=== PATIENT | female | born 1945 | race Hispanic/Latino ===

== ENCOUNTER → 2019-01-31 | Day surgery (SDC) | payer MEDICARE ==
[~2019-01-31] MED LIST: ASPIR 8181 MG PO; BACLOFEN10 MG PO; CARVEDILOL12.5 MG PO; GABAPENTIN300 MG PO; KEFLEX500 MG PO; KETAMINE HCL INJ 50 MG/ML 10 ML VIAL ONE; LASIX20 MG PO; LEVOTHYROXINE75 MCG PO; LIDOCAINE HCL 2% LOCAL INJ 5 ML SDV VIAL INJ ONE; LISINOPRIL-HCT1 EAC3 PO; LISINOPRIL10 MG PO; LOVASTATIN40 MG PO; MELOXICAM7.5 MG PO; METFORMIN HCL500 MG PO; MIDAZOLAM HCL 2 MG/2 ML VIAL ONE; PANTOPRAZOLE SO40 MG PO; PROPOFOL IV EMULSION 10 MG/ML 50 ML VIAL ONE; TYLENOL # 31 EA PO; ULTRAM50 MG PO; Z.0.CLONIDINE HCL0.1 PO; Z.0.LEVOTHYROXINE75 PO; Z.0.MELOXICAM15 MG PO; Z.0.PROTONIX40 MG PO; Z.0.VYTORIN 10-401 E PO; Z.2.METFORMIN HCL500 PO; ZETIA10 MG PO
--- OUTSIDE RECORDS SUMMARY | 2019-01-31 08:50 | XMS REPORT ---
[facility] Author [facility] Address Unknown Phone Unavailable Care Team Providers Care Electrical Assembly Supervisor Name Role Phone Amari LAMBERT Unavailable Unavailable Payers Payer Name Policy Type Policy Number Effective Date Expiration Date Problems This patient has no known problems. Allergies, Adverse Reactions, Alerts Allergy Name Allergy Type Status Severity Reaction(s) Onset Date Inactive Date Treating Clinician Comments propoxyphene napsylate DA Active [place] 2016-03-18 00:00:00 Medications This patient has no known medications. Results Test Description Test Time Test Comments Text Results Atomic Results Result Comments - MRI LW JNT W/O CONT LT 2018-11-12 18:07:00 FAX: Grady Murcia [phone] [place]: B St: REG Name: YESSENIA TERRY [employer] : 1945 Age/S: 73/F [address] Unit #: [id number] Loc: [place] [address] Phys: Grady Del Toro MD Acct: [id number] Dis Date: Status: REG CLI PHONE #: [phone] Exam Date: 11/12/2018 1634 FAX #: [phone] Reason: M54.41,M54.42 EXAMS: CPT CODE: [id number] MRI LW JNT W/[place] [address] EXAMINATION: MRI HIP WITHOUT CONTRAST - LEFT SIDE INDICATION: Hip pain. COMPARISON: None. TECHNIQUE: 1.5 T MRI. Routine noncontrast MRI of the pelvis and left hip FINDINGS: Acetabular Labrum: No labral tear or detachment. Hip Morphology: No cam deformity, femoral head over coverage or acetabular retroversion. Hip Joint/Articular Cartilage: Joint space is maintained. No hip joint effusion. No intraarticular loose body. Tonnis grade=0 Bone/Marrow: Normal signal intensity. No focal bone lesion, femoral neck stress fracture or avascular necrosis of femoral head. Muscles and Tendons: No muscle edema, fatty infiltration or atrophy. Iliopsoas, rectus femoris, gluteus, adductor and hamstrings tendons are intact. Sacroiliac joints: Normal. Symphysis pubis: Normal. Intr apelvic structures: No free fluid or lymphadenopathy. Other: No trochanteric bursal fluid collection. No periarticular soft tissue mass. Visualized pelvic organs are within normal limits. IMPRESSION: Normal MR of the pelvis and left hip. at 1807 Reported and signed by: Kade Wilcox MD PAGE 1 Signed Report (CONTINUED) FAX: Grady Murcia [phone] [place]: St: REG Name: YESSENIA TERRY [facility] [employer] : 1945 Age/S: 73/F [address] Unit #: [id number] Loc: [place] [address] Phys: Grady Del Toro MD Acct: [id number] Dis Date: Status: REG CLI PHONE #: [phone] Exam Date: 11/12/2018 1634 FAX #: [phone] Reason: M54.41,M54.42 EXAMS: CPT CODE: [id number] MRI LW JNT W/[place] [address] <Continued> CC: Grady Del Toro MD Technologist: Tameka Espinoza)(MR) Trnscrd Date/Time/By: 11/12/2018 (1805) : By: [email or web address] PAGE 2 Signed Report - MRI L-SPINE W/O CONT 2018-11-12 17:13:00 FAX: Grady Murcia [phone] [place]: St: REG Name: YESSENIA TERRY [employer] : 1945 Age/S: 73/F [address] [facility] Unit #: [id number] Loc: [place] [address] Phys: Grady Del Toro MD Acct: [id number] Dis Date: Status: REG CLI PHONE #: [phone] Exam Date: 11/12/2018 1634 FAX #: [phone] Reason: M54.41,M54.42 EXAMS: CPT CODE: [id number] MRI L-SPINE W/O CONT 95413 HISTORY: M54.41,M54.42 TECHNIQUE: Sagittal T2, sagittal T1, sagittal STIR, axial T1, and axial T2 sequences of the lumbar spine acquired without contrast. COMPARISON: CT scan of the lumbar spine March 20, 2016 FINDINGS: Postsurgical changes of posterior fusion of L3-L5 and posterior laminectomy at L4-L5 are redemonstrated. T12-L1: No disc bulge or protrusion. No central canal or foraminal stenosis. L1-L2: There is anterior disc bulging but no appreciable posterior disc bu lging. No central canal or foraminal stenosis. L2-L3: No central canal stenosis. Suboptimal evaluation of the foramina secondary to spinal hardware. L3-L4: Suboptimal evaluation of the foramina due to artifact from hardware. No central canal stenosis L4-L5: Mild central canal stenosis, similar to previous exam. Suboptimal evaluation of the foramina secondary to spinal hardware. L5-S1: No central canal stenosis. Suboptimal evaluation of the foramina secondary to spinal hardware. IMPRESSION: Postsurgical changes of L3-L5 posterior fusion and L4-L5 laminectomy appear grossly unchanged from the prior exam. No mild central canal narrowing at L4-L5 but otherwise the central canal is patent. Suboptimal evaluation for the presence of foraminal narrowing in the mid to lower lumbar spine secondary to artifact from spinal hardware. at 4103 Reported and signed by: Kade Wilcox MD PAGE 1 Signed Report (CONTINUED) FAX: Grady Murcia [phone] [place]: St: REG Name: YESSENIA TERRY [employer] : 1945 Age/S: 73/F [address] [facility] Unit #: [id number] Loc: [place] [address] Phys: Grady Del Toro MD Acct: [id number] Dis Date: Status: REG CLI PHONE #: [phone] Exam Date: 11/12/2018 1634 FAX #: [phone] Reason: M54.41,M54.42 EXAMS: CPT CODE: [id number] MRI L-SPINE W/O CONT 30842 <Continued> CC: Grady Del Toro MD Technologist: Tameka Espinoza)() [facility] Date/Time/By: 11/12/2018 (1713) : By: [email or web address] Orig Print D/T: S: 11/12/2018 (8433) PAGE 2 Signed Report - XR CHEST 2 V 2018-08-06 13:00:00 Name: YESSENIA TERRY [facility] : 1945 Age/S:73 /F [address] [facility] Unit#:[id number] Loc: [place] [address] Phys: Fermin Kwon MD Dis Date: PHONE #: [phone] Status: DEP ER FAX #: [phone] Exam Date: 08/06/2018 Reason: cough+wheezing EXAMS: CPT CODE: [id number] XR CHEST 2 V 07257 HISTORY: Cough and wheezing. COMPARISON: October 07, 2016. AP and lateral view of the chest: No acute infiltrates, effusion or congestion. Dependent changes. Cardiac silhouette is mildly enlarged. DJD of the dorsal spine. IMPRESSION: No acute infiltrates, effusion or congestion. Dependent changes. at 1300 Reported and signed by: Moshe Loja M.D. CC: Fermin Kwon MD Technologist: ESTEFANÍA BAUTISTA, RT(R),CT Trnscrpt Data: 08/06/2018 (1300) [email or web address] Orig Print D/T: S: 08/06/2018 (1313) PAGE 1 Signed Report - XR CHEST 1 V 2016-10-07 09:41:00 FAX: Mac Duncan MD [phone] [place]: B St: [facility] FAX: Lissa Spencer [phone] Name: YESSENIA TERRY [employer] : 1945 Age/S: 71/F [address] Unit #: [id number] Loc: [facility] [place] [address] Phys: Mac Duncan MD Acct: [id number] Dis Date: Status: UNK PHONE #: [phone] Exam Date: 10/07/2016 0905 FAX #: [phone] Reason: CHEST PAIN EXAMS: CPT CODE: [id number] XR CHEST 1 V 78797 HISTORY: Chest pain. COMPARISON: Previous day. No acute infiltrates, effusion or congestion is noted. Dependent changes. Cardiomegaly. IMPRESSION: No acute infiltrates, effusion or congestion. at 0941 Reported and signed by: Moshe Loja M.D. CC: Mac Duncan MD; Lissa Lawton MD Technologist: RT CADE(Daniel) Trnscrd Date/Time/By: 10/07/2016 (940) : By: [email or web address] Orig Print D/T: S: 10/07/2016 (0913) PAGE 1 Signed Report - CT C-SPINE W/O CONTRAST 2016-10-06 12:52:00 Name: YESSENIA TERRY [employer] : 1945 Age/S: 71 / F [address] Unit #: [id number] Loc: [place] [address] Phys: Mac Duncan MD Acct: [id number] Dis Date: Status: UNK PHONE #: [phone] Exam Date: 10/06/2016 1230 FAX #: [phone] Reason: Pain s/p fall EXAMS: CPT CODE: [id number] CT C-SPINE W/O CONTRAST 95836 HISTORY: Pain after fall. COMPARISON: None available. CT cervical spine without contrast: Automated exposure control. No acute fracture of the cervical spine. No prevertebral soft tissue swelling. No canal or foraminal stenosis. Scattered marginal osteophytes. Thyroid glands are normal. Superior mediastinum is unremarkable. Lung apices are clear. Vertebral body heights are maintained. Anatomic alignment. Uncovertebral joints are preserved. IMPRESSION: No acute fracture. Anatomic alignment. DJD. at 1252 Reported and signed by: Moshe Loja M.D. CC: Mac Duncan MD Technologist:Vinita Porter RT(R),CT CTDI: DLP: Trnscb Date/Time: 10/06/2016 (0327) [email or web address] Orig Print D/T: S: 10/06/2016 (2232) CTDI: DLP: PAGE 1 Signed Report - CT HEAD/BRAIN W/O CONT 2016-10-06 12:49:00 Name: YESSENIA TERRY [employer] : 1945 Age/S: 71 / F [address] [facility] Unit #: [id number] Loc: [place] [address] Phys: Mac Duncan MD Acct: [id number] Dis Date: Status: UNK PHONE #: [phone] Exam Date: 10/06/2016 1230 FAX #: [phone] Reason: Pain s/p fall EXAMS: CPT CODE: [id number] CT HEAD/BRAIN W/O CONT 05910 HISTORY: Pain after fall. COMPARISON: None available. CT brain without contrast: Automated exposure control. No acute intracranial bleeds or extra-axial collections are noted. No acute territorial vascular infarction is noted. The sulci, gyri, ventricles and subarachnoid spaces and the basilar cisterns are normal for patient's age. No herniation or hydrocephalus or midline shift is noted. Mild periventricular ischemic gliosis is noted. Age-appropriate atrophy is noted as well. Portions of the visualized paranasal sinuses demonstrated air-fluid levels within the floors of both maxillary sinus. Bilateral ethmoid sinusitis as well. No obvious bony calvarial defect is noted. IMPRESSION: No acute intracranial bleeds or extra-axial collections. No acute territorial vascular infarction. No herniation or hydrocephalus or midline shift. Chronic white matter ischemic disease and atrophy . at 1249 Reported and signed by: Moshe Loja M.D. CC: Mac Duncan MD Technologist:Vinita Porter RT(R),CT CTDI: DLP: Trnscb Date/Time: 10/06/2016 (7939) [email or web address] Orig Print D/T: S: 10/06/2016 (1772) CTDI: DLP: PAGE 1 Signed Report - XR CHEST 1 V 2016-10-06 12:22:00 FAX: Mac Duncan MD [phone] [place]: St: [facility] Name: YESSENIA TERRY [facility] [employer] : 1945 Age/S: 71/F [address] [facility] Unit #: [id number] Loc: [place] [address] Phys: Mac Duncan MD Acct: [id number] Dis Date: Status: UNK PHONE #: [phone] Exam Date: 10/06/2016 1220 FAX #: [phone] Reason: Syncope EXAMS: CPT CODE: [id number] XR CHEST 1 V 15950 HISTORY: Syncope. COMPARISON: None available. No acute infiltrates, effusion or congestion is noted. Suboptimal inspiration. D ependent changes. Cardiomegaly. IMPRESSION: No acute infiltrates, effusion or congestion. at 1222 Reported and signed by: Moshe Loaj M.D. CC: Mac Duncan MD Technologist: Aurelia Hopkins RT(R) Trnscrd Date/Time/By: 10/06/2016 (1222) : By: [email or web address] Orig Print D/T: S: 10/06/2016 (4676) PAGE 1 Signed Report [facility] [place] [address] Patient Name: YESSENIA TERRY MR #: [id number] : 1945 Age/Sex: 72/F Req #: [id number] Adm Physician: Ordered by: BERHANE LAMBERT MD Report #: [id number] Location: ER Room/Bed: Procedure: [id number] DX/CHEST SINGLE (PORTABLE) Exam Date: 07/29/17 Exam Time: 2100 REPORT STATUS: Signed CHEST SINGLE (PORTABLE), 07/29/2017 8:22 PM Technique: CHEST SINGLE (PORTABLE) Comparison: 02/27/2017 Clinical history: Chest pain Findings: See Impression Impression: 1. Stable cardiomediastinal silhouette. 2. Low lung volumes with bibasilar vascular crowding/atelectasis. 3. No effusion or pneumothorax. Signed by: Dr Holly Kowalski MD on 07/29/2017 9:59 PM Dictated By: HOLLY KOWALSKI MD 58 Transcribed By: KRISTINE on 07/29/172158 COPY TO: BERHANE LAMBERT MD
[2019-01-31 13:00] VITALS: BP 149/81
--- NOTE | 2019-01-31 19:54 | Operative Report ---
DATE OF PROCEDURE: 01/31/2019 SURGEON: Zana Corrigan MD PROCEDURES: Esophagogastroduodenoscopy with biopsies and esophageal dilatation and colonoscopy with polypectomy. INDICATION FOR EGD: Dysphagia, nausea, bloating. INDICATIONS FOR COLONOSCOPY: Surveillance colonoscopy, personal history of colon polyps. MEDICATIONS: The patient was done under MAC, please see anesthesiologist's note. PROCEDURE IN DETAIL: With the patient in left lateral decubitus position, a flexible fiberoptic Olympus gastroscope was introduced into the esophagus under direct visualization without any difficulty. There was some patchy erythema noted in distal esophagus. An esophageal stricture was noted at the GE junction that was dilated to size 52-[place] Thorpe. The scope was then advanced with ease into the stomach traversing a small hiatal hernia. Mucosa overlying the antrum and the body revealed some patchy erythema, dhhl-kc-[id number] edema and biopsies were obtained, sent to stain for H pylori. A minute submucosal nodule was noted in the mid body along the anterior wall that was biopsied. The pylorus was of normal contour and shape, it was intubated with ease and the scope was advanced all the way to the second portion of the duodenum. The scope was then withdrawn slowly and mucosa overlying the proximal second portion and the duodenal bulb grossly appeared to be within normal limits. Biopsies were obtained to rule out sprue. The scope was then withdrawn back into the stomach and retroflexed and mucosa overlying the fundus and the cardia appeared to be within normal limits. The scope was then straightened out, it was subsequently withdrawn. The patient tolerated the procedure well. IMPRESSION: 1. Mild distal esophagitis. 2. Esophageal stricture at GE junction dilated to size 52-[place] Thorpe. 3. Hiatal hernia. 4. Gastritis, biopsied, biopsies sent to stain for Helicobacter pylori. 5. Submucosal nodule, body, anterior wall, biopsied. 6. Rule out sprue. PLAN: Follow up histology. Increase Protonix to 40 mg one p.o. a.c. b.i.d. PROCEDURE IN DETAIL: The patient was then turned around and after adequate lubrication of the anal canal, flexible fiberoptic Olympus colonoscope was inserted into the rectum with ease and advanced all the way to the cecum. One polyp was snared from the cecum. The scope was then withdrawn slowly and of note there were some diverticular disease scattered throughout the colon. One polyp was hot biopsied from the ascending colon. The transverse, descending and sigmoid other than for some diverticular disease was unremarkable. One polyp was hot biopsied from the rectum. The scope was then retroflexed into the distal rectum and small internal hemorrhoids were noted, none of which was actively bleeding. The scope was then straightened out, it was subsequently withdrawn. The patient tolerated the procedure well. IMPRESSION: 1. Diverticulosis, scattered. 2. Cecal polyp, snared. 3. Ascending colon polyp, hot biopsied. 4. Rectal polyp, hot biopsied. 5. Internal hemorrhoids, none actively bleeding. PLAN: Follow up histology. Initiate high-fiber, low-fat diet. Initiate high-fiber supplement. The patient might benefit from a followup colonoscopy in 3 to 5 years. Zana Corrigan MD [facility]/JOSE ROBERTO /[id number] cc: Grady Lutz
== END | disposition home or self-care (01) ==
LOC: OR 07:55
PROVIDERS: ATTEND Internal Medicine Gastroenterology
DX: K22.2 Esophageal obstruction (principal); D12.0 Benign neoplasm of cecum; D12.8 Benign neoplasm of rectum; K29.50 Unspecified chronic gastritis without bleeding; B96.81 Helicobacter pylori [H. pylori] as the cause of diseases classified elsewhere; K20.9 Esophagitis, unspecified; K44.9 Diaphragmatic hernia without obstruction or gangrene; K31.89 Other diseases of stomach and duodenum; K57.30 Diverticulosis of large intestine without perforation or abscess without bleeding; K64.8 Other hemorrhoids; I10 Essential (primary) hypertension; E78.5 Hyperlipidemia, unspecified; E66.01 Morbid (severe) obesity due to excess calories; E11.9 Type 2 diabetes mellitus without complications; Z01.810 Encounter for preprocedural cardiovascular examination; Z79.84 Long term (current) use of oral hypoglycemic drugs; Z68.42 Body mass index [BMI] 45.0-49.9, adult
CPT/HCPCS: 36415; 43239; 43450; 45384; 45385; 82948; 93005; J2001; J2250; J2704; 45378

== ENCOUNTER 2019-08-01 21:17 | Inpatient (IN) | payer MEDICARE, OTHER ==
[~2019-08-01] VITALS: Ht 160 cm; Wt 114.0 kg
[~2019-08-01 21:17] MED LIST changes: -KETAMINE HCL INJ 50 MG/ML 10 ML VIAL ONE; -LIDOCAINE HCL 2% LOCAL INJ 5 ML SDV VIAL INJ ONE; -MIDAZOLAM HCL 2 MG/2 ML VIAL ONE; -PROPOFOL IV EMULSION 10 MG/ML 50 ML VIAL ONE
--- OUTSIDE RECORDS SUMMARY | 2019-08-01 21:20 | XMS REPORT ---
Author Author [facility] Address Unknown Phone Unavailable Care Team Providers Care Marine Driller Name Role Phone Amari LAMBERT Unavailable Unavailable Payers Payer Name Policy Type Policy Number Effective Date Expiration Date Problems This patient has no known problems. Allergies, Adverse Reactions, Alerts Allergy Name Allergy Type Status Severity Reaction(s) Onset Date Inactive Date Treating Clinician Comments No Known Allergies DA Active U 2017-11-30 00:00:00 propoxyphene napsylate DA Active [place] 2016-03-18 00:00:00 Medications This patient has no known medications. Results Test Description Test Time Test Comments Text Results Atomic Results Result Comments - MRI LW JNT W/O CONT LT 2018-11-12 18:07:00 FAX: Grady Murcia [phone] [place]: B St: REG Name: YESSENIA TERRY [facility] : 1945 Age/S: 73/F [address] Unit #: [id number] Loc: [place] [address] Phys: Grady Del Toro MD Acct: [id number] Dis Date: Status: REG CLI PHONE #: [phone] Exam Date: 11/12/2018 1634 FAX #: [phone] Reason: M54.41,M54.42 EXAMS: CPT CODE: [id number] MRI LW JNT W/[place] [address] EXAMINATION: MRI HIP WITHOUT CONTRAST - LEFT [...] 1 Signed Report (CONTINUED) FAX: Grady Murcia [phone] [place]: St: REG Name: YESSENIA TERRY [facility] : 1945 Age/S: 73/F [address] [facility] Unit #: [id number] Loc: [place] [address] Phys: Grady Del Toro MD Acct: [id number] Dis Date: Status: REG CLI PHONE #: [phone] Exam Date: 11/12/2018 1634 FAX #: [phone] Reason: M54.41,M54.42 EXAMS: CPT CODE: [id number] MRI LW JNT W/[place] [address] <Continued> CC: Grady Del Toro MD Technologist: Tameka Espinoza)(MR) Trnscrd Date/Time/By: 11/12/2018 (1807) : By: [email or web address] PAGE 2 Signed Report - MRI L-SPINE W/O CONT 2018-11-12 17:13:00 FAX: Grady Murcia [phone] [place]: St: REG Name: YESSENIA TERRY [facility] : 1945 Age/S: 73/F [address] [facility] Unit #: [id number] Loc: [place] [address] Phys: Grady Del Toro MD Acct: [id number] Dis Date: Status: REG CLI PHONE #: [phone] Exam Date: 11/12/2018 1634 FAX #: [phone] Reason: M54.41,M54.42 EXAMS: CPT CODE: [id number] MRI L-SPINE W/O CONT 51620 HISTORY: M54.41,M54.42 TECHNIQUE: Sagittal T2, sagittal T1, [...] secondary to artifact from spinal hardware. at 1713 Reported and signed by: Kade Wilcox MD PAGE 1 Signed Report (CONTINUED) FAX: Grady Murcia [phone] [place]: St: REG Name: YESSENIA TERRY [facility] : 1945 Age/S: 73/F [address] [facility] Unit #: [id number] Loc: [place] [address] Phys: Grady Del Toro MD Acct: [id number] Dis Date: Status: REG CLI PHONE #: [phone] Exam Date: 11/12/2018 4124 FAX #: [phone] Reason: M54.41,M54.42 EXAMS: CPT CODE: [id number] MRI L-SPINE W/O CONT 99332 <Continued> CC: Grady Del Toro MD Technologist: Tameka Cabrera(Daniel)(MR) Trnscrd Date/Time/By: 11/12/2018 (1713) : By: [email or web address] Orig Print D/T: S: 11/12/2018 (1711) PAGE 2 Signed Report - XR CHEST 2 V 2018-08-06 13:00:00 Name: YESSENIA TERRY [facility] : 1945 Age/S:73 /F [address] [facility] Unit#:[id number] Loc: [facility] [place] [address] Phys: Fermin Kwon MD Dis Date: PHONE #: [phone] Status: DEP ER FAX #: [phone] Exam Date: 08/06/2018 Reason: cough+wheezing EXAMS: CPT CODE: [id number] XR CHEST 2 V 04586 HISTORY: Cough and wheezing. COMPARISON: October 07, 2016. AP and lateral view of the chest: No acute infiltrates, effusion or congestion. Dependent changes. Cardiac silhouette is mildly enlarged. DJD of the dorsal spine. IMPRESSION: No acute infiltrates, effusion or congestion. Dependent changes. at 1300 Reported and signed by: Moshe Loja M.D. CC: Fermin Kwon MD Technologist: ESTEFANÍA BAUTISTA RT(R),CT Trnscrpt Data: 08/06/2018 (1300) [email or web address] Orig Print D/T: S: 08/06/2018 (1313) PAGE 1 Signed Report - XR CHEST 1 V 2016-10-07 09:41:00 FAX: Mac Duncan MD [phone] [place]: St: [facility] FAX: Lissa Spencer [phone] Name: YESSENIA TERRY [facility] : 1945 Age/S: 71/F [address] Unit #: [id number] Loc: [facility] [place] [address] Phys: Mac Duncan MD Acct: [id number] Dis Date: Status: UNK PHONE #: [phone] Exam Date: 10/07/2016 0905 FAX #: [phone] Reason: CHEST PAIN EXAMS: CPT CODE: [id number] XR CHEST 1 V 07887 HISTORY: Chest pain. COMPARISON: Previous day. No acute infiltrates, effusion or congestion is noted. Dependent changes. Cardiomegaly. IMPRESSION: No acute infiltrates, effusion or congestion. at 0941 Reported and signed by: Moshe Loja M.D. CC: Mac Duncan MD; Lissa Lawton MD Technologist: RT CADE(R) Trnscrd Date/Time/By: 10/07/2016 (0941) : By: [email or web address] Orig Print D/T: S: 10/07/2016 (0911) PAGE 1 Signed Report - CT C-SPINE W/O CONTRAST 2016-10-06 12:52:00 Name: YESSENIA TERRY [facility] : 1945 Age/S: 71 / F [address] Unit #: [id number] Loc: [place] [address] Phys: Mac Duncan MD Acct: [id number] Dis Date: Status: UNK PHONE #: [phone] Exam Date: 10/06/2016 1230 FAX #: [phone] Reason: Pain s/p fall EXAMS: CPT CODE: [id number] CT C-SPINE W/O CONTRAST 30189 HISTORY: Pain after fall. COMPARISON: None available. [...] Porter RT(R),CT CTDI: DLP: Trnscb Date/Time: 10/06/2016 (5182) [email or web address] Orig Print D/T: S: 10/06/2016 (1118) CTDI: DLP: PAGE 1 Signed Report - CT HEAD/BRAIN W/O CONT 2016-10-06 12:49:00 Name: YSESENIA TERRY [facility] : 1945 Age/S: 71 / F [address] [facility] Unit #: [id number] Loc: [place] [address] Phys: Mac Duncan MD Acct: [id number] Dis Date: Status: UNK PHONE #: [phone] Exam Date: 10/06/2016 1230 FAX #: [phone] Reason: Pain s/p fall EXAMS: CPT CODE: [id number] CT HEAD/BRAIN W/O CONT 82070 HISTORY: Pain after fall. COMPARISON: None available. [...] Porter RT(R),CT CTDI: DLP: Trnscb Date/Time: 10/06/2016 (1249) [email or web address] Orig Print D/T: S: 10/06/2016 (3035) CTDI: DLP: PAGE 1 Signed Report - XR CHEST 1 V 2016-10-06 12:22:00 FAX: Mac Duncan MD [phone] [place]: St: [place]K Name: HARRISONYESSENIAPEYTON MONTERO [facility] : 1945 Age/S: 71/F [address] [facility] Unit #: [id number] Loc: [facility] [place] [address] Phys: Mac Duncan MD Acct: [id number] Dis Date: Status: UNK PHONE #: [phone] Exam Date: 10/06/2016 1220 FAX #: [phone] Reason: Syncope EXAMS: CPT CODE: [id number] XR CHEST 1 V 55655 HISTORY: Syncope. COMPARISON: None available. No acute infiltrates, effusion or congestion is noted. Suboptimal inspiration. D ependent changes. Cardiomegaly. IMPRESSION: No acute infiltrates, effusion or congestion. at 1222 Reported and signed by: Moshe Loja M.D. CC: Mac Duncan MD Technologist: Aurelia Hopkins RT(R) Trnscrd Date/Time/By: 10/06/2016 (1332) : By: [email or web address] Orig Print D/T: S: 10/06/2016 (6673) PAGE 1 Signed Report CHEST SINGLE (PORTABLE) [place] [address] Patient Name: YESSENIA TERRY MR #: [id number] : 1945 Age/Sex: 72/F Req #: [id number] Adm Physician: Ordered by: BERHANE LAMBERT MD Report #: [id number] Location: ER Room/Bed: Procedure: [id number] DX/CHEST SINGLE (PORTABLE) Exam Date: 07/29/17 Exam [...]
[2019-08-01] MEDS ORDERED: ACETAMINOPHEN 325 MG TAB PO ONE (21:26)
[2019-08-01] MEDS ORDERED: SODIUM CHLORIDE 0.9% 500ML 500 ML IV STA (21:26)
[2019-08-01] MEDS ORDERED: CEFTRIAXONE SOD 1 GM VIAL IV ONE (21:30)
[2019-08-01 21:43] LABS: BASOPHILS # (AUTO) 0.1 (0.0-0.1); BASOPHILS % 0.5 % (0.0-1.0); EOSINOPHILS # (AUTO) 0.2 (0.0-0.4); EOSINOPHILS % 1.8 % (0.0-6.0); HEMATOCRIT 39.3 % (34.2-44.1); HEMOGLOBIN 12.8 g/dL (12.0-16.0); LYMPHOCYTES # (AUTO) 0.8 (1.0-3.2); LYMPHOCYTES % 7.3 % (18.0-39.1); MEAN CORPUSCULAR HEMOGLOBIN 28.1 pg (28-32); MEAN CORPUSCULAR HGB CONC 32.6 g/dL (31-35); MEAN CORPUSCULAR VOLUME 86.4 fL (81-99); MONOCYTES # (AUTO) 0.8 (0.2-0.8); MONOCYTES % 7.9 % (4.4-11.3); NEUTROPHILS # (AUTO) 8.6 (2.1-6.9); PLATELET COUNT 242 x10e3/uL (140-360); RED BLOOD COUNT 4.55 x10e6/uL (3.6-5.1)
[2019-08-01] MEDS ORDERED: CEFTRIAXONE SOD 1 GM/NS 50 ML 50 ML IV ONE (21:45)
[2019-08-01 21:56] LABS: BILIRUBIN,URINE SMALL (NEGATIVE); CLARITY,URINE SL CLOUDY (CLEAR); COLOR,URINE YELLOW (YELLOW); KETONES,URINE 1+ (NEGATIVE); LEUKOCYTE ESTERASE ,URINE NEGATIVE (NEGATIVE); NITRITE,URINE NEGATIVE (NEGATIVE); PROTEIN,URINE DIPSTICK 1+ (NEGATIVE); URINE UROBILINOGEN 0.2 mg/dL (0.2 - 1)
[2019-08-01 22:00] LABS: ALANINE AMINOTRANSFERASE 128 IU/L (0-55); ALBUMIN 3.9 g/dL (3.5-5.0); ALBUMIN/GLOBULIN RATIO 0.8 (0.8-2.0); ALKALINE PHOSPHATASE 102 IU/L (40-150); ANION GAP 14.6 mmol/L (8-16); BLOOD UREA NITROGEN 10 mg/dL (7-26); BUN/CREATININE RATIO 11 (6-25); CARBON DIOXIDE 24 mmol/L (22-29); CHLORIDE 100 mmol/L (98-107); CREATINE KINASE 86 IU/L (29-168); CREATININE, SERUM 0.89 mg/dL (0.57-1.11); EST GLOMERULAR FILTRATION RATE > 60 ML/MIN (60-); GLUCOSE 200 mg/dL (74-118); POTASSIUM 3.6 mmol/L (3.5-5.1); SODIUM 135 mmol/L (136-145)
[2019-08-01 22:10] LABS: AMORPHOUS SEDIMENT,URINE MODERATE (FEW); BACTERIA,URINE MODERATE /HPF; EPITHELIAL CELLS,URINE FEW /LPF; RBC,URINE 0-5 /HPF (0-5); WBC,URINE (MAN) 0-5 /HPF (0-5)
[2019-08-01] MEDS ORDERED: ACETAMINOPHEN 325 MG TAB PO PRN (22:30)
[2019-08-01] MEDS ORDERED: ENALAPRILAT IV INJ 1.25 MG/ML VIAL IV PRN (22:30)
[2019-08-01] MEDS ORDERED: CLONIDINE HCL 0.1 MG TAB PO PRN (22:30)
[2019-08-01] MEDS ORDERED: MORPHINE SULFATE 2 MG/ML SYR 1ML IV PRN (22:30)
[2019-08-01] MEDS ORDERED: DEXTROSE 50% SYRINGE 50 ML IV PRN (22:30)
[2019-08-01] MEDS ORDERED: ZOLPIDEM TARTRATE 5 MG TAB PO PRN (22:30)
[2019-08-01] MEDS ORDERED: DIPHENHYDRAMINE HCL INJ 50 MG/ML VIAL IV PRN (22:30)
--- NOTE | 2019-08-01 22:43 | Diagnostic Imaging Report ---
EXAMINATION: CHEST 2 VIEWS INDICATION: Cough COMPARISON: None FINDINGS: PA and lateral views TUBES and LINES: None. LUNGS: Lungs are well inflated. No consolidations. Mild hazy bilateral perihilar opacities. PLEURA: No pleural effusion or pneumothorax. HEART AND MEDIASTINUM: The cardiomediastinal silhouette is unremarkable. BONES AND SOFT TISSUES: No acute osseous lesion. Soft tissues are unremarkable. Partially visualized fixation hardware in the upper lumbar spine. Sequela of old trauma in the right shoulder. UPPER ABDOMEN: No free air under the diaphragm. IMPRESSION: Findings can be seen with bronchitis. No consolidations. Signed by: Jonnathan Ny DO on 08/01/2019 10:39 PM
[2019-08-02] VITALS (8 sets, daily range): BP systolic 128–136; BP diastolic 61–86
--- NOTE | 2019-08-02 01:00 | NUR ---
patient received to room 288 via stretcher from the emergency room. vss. patient slightly sob mainly on exertion. 10/18l/nc in use. admit assessment/history complete. patient unaware of her home medications and correct doses. family to bring correct medications tomorrow. call anguiano placed within reach. patient instructed to call for assistance when needed.
[2019-08-02] MEDS: IBUPROFEN 200 MG TAB PO PRN ×2 (01:44→20:45)
--- NOTE | 2019-08-02 01:44 | NUR ---
patient medicated with motrin 600mg po for c/o headache 01/21.
[2019-08-02 05:33] LABS: BASOPHILS % 0.5 % (0.0-1.0); EOSINOPHILS % 0.4 % (0.0-6.0); HEMATOCRIT 36.7 % (34.2-44.1); HEMOGLOBIN 11.8 g/dL (12.0-16.0); LYMPHOCYTES % 12.5 % (18.0-39.1); MEAN CORPUSCULAR HEMOGLOBIN 28.1 pg (28-32); MEAN CORPUSCULAR HGB CONC 32.2 g/dL (31-35); MEAN CORPUSCULAR VOLUME 87.4 fL (81-99); MONOCYTES # (AUTO) 0.7 (0.2-0.8); MONOCYTES % 9.2 % (4.4-11.3); NEUTROPHILS % 76.6 % (38.7-80.0); PLATELET COUNT 213 x10e3/uL (140-360); RED CELL DISTRIBUTION WIDTH 15.1 % (11.7-14.4)
[2019-08-02 05:53] LABS: ANION GAP 12.7 mmol/L (8-16); BLOOD UREA NITROGEN 10 mg/dL (7-26); BUN/CREATININE RATIO 13 (6-25); CALCIUM 9.2 mg/dL (8.4-10.2); CARBON DIOXIDE 26 mmol/L (22-29); CHLORIDE 104 mmol/L (98-107); CREATININE, SERUM 0.79 mg/dL (0.57-1.11); EST GLOMERULAR FILTRATION RATE > 60 ML/MIN (60-); GLUCOSE 161 mg/dL (74-118); POTASSIUM 3.7 mmol/L (3.5-5.1); SODIUM 139 mmol/L (136-145)
[2019-08-02] MEDS ORDERED: ALBUTEROL/IPRATROPIUM 3 ML NEB NEB SCH (06:00)
[2019-08-02 06:10] LABS: CREATINE KINASE 123 IU/L (29-168)
--- NOTE | 2019-08-02 07:06 | NUR ---
PT ASLEEP RESP EVEN AND UNLABORED AT THIS TIME NO DISTRESS NOTED, PT EASILY AROUSED, TO NAME, NO C/O PAIN AT THIS TIME WHEN ASKED, CALL LIGHT IN REACH.
[2019-08-02] MEDS: FAMOTIDINE 20 MG TAB PO SCH ×2 (07:30→16:30)
[2019-08-02] MEDS: ALBUTEROL/IPRATROPIUM 3 ML NEB NEB SCH ×5 (07:33→22:00)
[2019-08-02] MEDS: OSELTAMIVIR PHOSPHATE 75 MG CAP PO SCH ×2 (08:22→16:48)
[2019-08-02] MEDS: INSULIN REGULAR, HUMAN 100 UNIT/1 ML 3ML VIAL SQ SCH ×4 (08:27→20:23)
[2019-08-02] MEDS ORDERED: GUAIFENESIN/DEXTROMETHORPHAN LIQD 5 ML UDC NG PRN (08:30)
[2019-08-02] MEDS ORDERED: BENZONATATE 100 MG CAP PO PRN (08:30)
[2019-08-02] MEDS: AZITHROMYCIN 500MG/NS 250 ML 250 ML IV SCH (09:00)
--- NOTE | 2019-08-02 11:03 | NUR ---
H&P PRIMARY CARE PHYSICIAN: Dr. Osborn CHIEF COMPLAINT: sob/cough HISTORY OF PRESENT ILLNESS: This is a 74-year-old woman with cough/sob and myalgias for 1 day; found to be positive for flu. PAST MEDICAL HISTORY: Diabetes mellitus, type 2, hypertension, urinary tract infection, hypothyroidism, CRYSTAL. PAST SURGICAL HISTORY: Cholecystectomy, appendectomy, back, knee ALLERGIES: PER ELECTRONIC MEDICAL RECORDS. FAMILY HISTORY/SOCIAL HISTORY: ; She has 3 children. No alcohol, illicits or cigarettes. MEDICATIONS: Per electronic medical records. REVIEW OF SYSTEMS: no f/c/s/N/V/D//leg pain/cp/skin rash/vision changes/confusion v/s revd PE tired appearinga Anicteric ns1s2 reduced BS; cough with deep inspiration soft nt nd no e/t skin dry flat affect a&ox3; [place] LABS: Reviewed. MEDICATIONS: Reviewed. ASSESSMENT AND PLAN: This is a 74YoF Influenza A infection Acute bronchitis DM2 HTN Hypothyroidism PLAN Azithromycin + tamiflu Antitussives Restart home meds SCD Dispo: f/u clinically; Tony Fenton MD, PhD.
[2019-08-02] MEDS ORDERED: SODIUM CHLORIDE 0.9% 250ML 250 ML ONE (11:10)
[2019-08-02 14:17] LABS: CREATINE KINASE 192 IU/L (29-168)
[2019-08-02] MEDS: GABAPENTIN 300 MG CAP PO SCH ×2 (15:00→20:25)
[2019-08-02] MEDS: ENOXAPARIN SOD INJ 40 MG/0.4 ML SYR SC SCH (16:48)
[2019-08-02] MEDS: CARVEDILOL 12.5 MG TAB PO SCH (17:00)
--- NOTE | 2019-08-02 18:56 | Consultation ---
DATE OF CONSULTATION: 08/02/2019 REASON FOR CONSULTATION: To evaluate and assist in treatment of the patient with acute influenza. Information is gathered from the current medical record. I interviewed the patient at the bedside. HISTORY OF PRESENT ILLNESS: She is a 74-year-old woman with diabetes mellitus, hypertension, and past history of urinary tract infection, hypothyroidism, and acute kidney injury; she has had cholecystectomy in the past, appendectomy, back surgery with plates and screws in place; she has had arthroscopic surgery twice on the right knee, she has had a right rotator cuff surgery. She reports that she developed shortness of breath and cough a day before presentation associated with subjective sense of fevers as well as body aches and pains. She felt a pressure sensation in the forehead, which she does not describe as headache. She reports that her cough is productive of a tetlin green sputum. She does not believe that she has taken the flu shot this year. At presentation, she had a temperature of 101 degrees Fahrenheit. Her pulse rate of 110. Her respiratory rate of 24 and blood pressure 178/93. Her white count was found to be 10.4. Also, creatinine 0.8. She had a urine culture sent, which is being processed. Urinalysis showed a cloudy urine with negative nitrite, negative esterase, 0-5 wbc's, and moderate bacteria. Test for influenza is positive for influenza A. A chest x-ray shows findings suggestive of bronchitis with no consolidations. At the time of this evaluation, the patient is on treatment with azithromycin, Tamiflu, and ceftriaxone. PAST MEDICAL HISTORY: Her medical history is as reported above. She has chronic back pain. She gives no history of myocardial infarction or CVA. SOCIAL HISTORY: She never smoked or drank. She denies other forms of recreational drug use. FAMILY HISTORY: Positive for diabetes and hypertension. ALLERGIES: SHE HAS NO KNOWN ALLERGIES. MEDICATIONS: As reported earlier, she is on Tamiflu, ceftriaxone, and azithromycin. The rest of her medications are per the medication administration report. REVIEW OF SYSTEMS: The patient is alert. Her sensorium is clear. She coughs intermittently. It sounds nonproductive. She has headache. No neck stiffness. No sore throat currently. She has generalized body aches and pains. She reports frequent urination, but not dysuria. PHYSICAL EXAMINATION: GENERAL: She is an adult woman. She is alert, responsive, and coherent. She appears nontoxic and is in no acute distress. VITAL SIGNS: Maximum temperature was at presentation of 101 degrees Fahrenheit. She is hemodynamically stable. HEENT: She has no gross pallor. No obvious icterus. No oropharyngeal lesions. NECK: Supple. CHEST: Symmetric. LUNGS: Sound fairly clear to auscultation. HEART: Sounds are regular without a significant murmur. ABDOMEN: Full, soft, and nontender with normal bowel sounds. EXTREMITIES: There is no acute erythema of the extremities. LABORATORY DATA: Her white count 10.4 at presentation, 7.8 currently, hemoglobin 11.8, and platelet count 213. Differentials on her white count appear unremarkable. Serum creatinine 0.7 at present. Blood glucose up to 207. Liver function tests are abnormal from August 01 with ALT 128, AST 178, alkaline phosphatase is normal, and total bilirubin is normal. Serum lactic acid normal. IMPRESSION: This 74-year-old woman is a diabetic, admitted to hospital with signs and symptoms consistent with sepsis. She has acute influenza A respiratory infection, superimposed bacterial infection cannot be excluded. She has abnormal liver function tests, which may be a reflection of her sepsis syndrome, although intrinsic hepatobiliary tract disease should be considered in the differential diagnosis. I suggest we continue coverage with the current antimicrobials. Monitor her temperatures, CBC, renal and liver function tests and monitor clinical response to treatment. I have discussed the findings and treatment with the patient at the bedside as well as with the nursing staff. I will discuss the patient with the primary physician whom, I thank for the consult and opportunity to participate in the patient's care. MD NAT Wiseman/JOSE ROBERTO /[id number]
--- NOTE | 2019-08-02 19:00 | NUR ---
RECEIVED REPORT FROM PREVIOUS NURSE. CALL LIGHT WITHIN REACH. PATIENT IN BED. FAMILY AT BEDSIDE
--- NOTE | 2019-08-02 19:25 | NUR ---
report given to oncoming nurse, pt stable .
[2019-08-02] MEDS ORDERED: LOVASTATIN40 MG (20:09)
[2019-08-02] MEDS ORDERED: TIZANIDINE HCL4 MG PO (20:09)
[2019-08-02] MEDS ORDERED: AMLODIPINE BESY10 MG PO (20:09)
[2019-08-03] VITALS (7 sets, daily range): BP systolic 104–146; BP diastolic 53–84
[2019-08-03] MEDS: LEVOTHYROXINE SODIUM 75 MCG TAB PO SCH (05:37)
[2019-08-03 05:42] LABS: BASOPHILS % 0.5 % (0.0-1.0); HEMATOCRIT 36.2 % (34.2-44.1); HEMOGLOBIN 11.3 g/dL (12.0-16.0); LYMPHOCYTES # (AUTO) 1.5 (1.0-3.2); LYMPHOCYTES % 23.4 % (18.0-39.1); MEAN CORPUSCULAR HEMOGLOBIN 27.7 pg (28-32); MEAN CORPUSCULAR HGB CONC 31.2 g/dL (31-35); MEAN CORPUSCULAR VOLUME 88.7 fL (81-99); MONOCYTES # (AUTO) 0.8 (0.2-0.8); MONOCYTES % 13.2 % (4.4-11.3); NEUTROPHILS % 62.4 % (38.7-80.0); PLATELET COUNT 196 x10e3/uL (140-360); RED BLOOD COUNT 4.08 x10e6/uL (3.6-5.1); RED CELL DISTRIBUTION WIDTH 15.3 % (11.7-14.4)
[2019-08-03 06:02] LABS: ANION GAP 14.6 mmol/L (8-16); BLOOD UREA NITROGEN 11 mg/dL (7-26); BUN/CREATININE RATIO 13 (6-25); CALCIUM 9.2 mg/dL (8.4-10.2); CARBON DIOXIDE 22 mmol/L (22-29); CHLORIDE 107 mmol/L (98-107); CREATININE, SERUM 0.83 mg/dL (0.57-1.11); EST GLOMERULAR FILTRATION RATE > 60 ML/MIN (60-); GLUCOSE 160 mg/dL (74-118); POTASSIUM 3.6 mmol/L (3.5-5.1); SODIUM 140 mmol/L (136-145)
[2019-08-03 06:14] LABS: PLATELET MORPHOLOGY COMMENT FEW LARGE; RBC MORPHOLOGY COMMENT NORMAL
--- NOTE | 2019-08-03 07:08 | NUR ---
IM- progress note O/N no events REVIEW OF SYSTEMS: no f/c/s/N/V/D//leg pain/cp/skin rash/vision changes/confusion v/s revd PE tired appearinga Anicteric ns1s2 reduced BS; cough with deep inspiration soft nt nd no e/t skin dry flat affect a&ox3; [place] LABS: Reviewed. MEDICATIONS: Reviewed. ASSESSMENT AND PLAN: This is a 74YoF Influenza A infection Acute bronchitis DM2 HTN Hypothyroidism PLAN Azithromycin + tamiflu Antitussives Restart home meds SCD Dispo: f/u clinically; 08/03 cont current treatments; continue isolation; pt beginning to feel better; Tony Fenton MD, PhD.
--- NOTE | 2019-08-03 07:13 | NUR ---
Gave report to oncoming nurse. Call light within reach. Patient in bed.
[2019-08-03] MEDS: INSULIN REGULAR, HUMAN 100 UNIT/1 ML 3ML VIAL SQ SCH ×4 (07:30→20:35)
--- NOTE | 2019-08-03 07:30 | NUR ---
PATIENT IS ALERT AND IN STABLE CONDITION WITH NO S/S OF RESPIRATORY DISTRESS. PATIENT C./O BACK PAIN 06/23. BEDSIDE COMMODE AVAILABLE FOR PATIENT. CALL LIGHT IS WITHIN REACH, PATIENT INSTRUCTED TO CALL FOR ASSISTANCE NEEDED.
[2019-08-03] MEDS: ALBUTEROL/IPRATROPIUM 3 ML NEB NEB SCH ×4 (07:45→20:11)
[2019-08-03] MEDS: FAMOTIDINE 20 MG TAB PO SCH ×2 (08:39→17:07)
[2019-08-03] MEDS: ASPIRIN 81 MG CHEW TAB PO SCH (08:39)
[2019-08-03] MEDS: AZITHROMYCIN 500MG/NS 250 ML 250 ML IV SCH (08:39)
[2019-08-03] MEDS: OSELTAMIVIR PHOSPHATE 75 MG CAP PO SCH ×2 (08:40→17:07)
[2019-08-03] MEDS: IBUPROFEN 200 MG TAB PO PRN (08:40)
[2019-08-03] MEDS: GABAPENTIN 300 MG CAP PO SCH ×3 (08:40→20:59)
[2019-08-03] MEDS: EZETIMIBE 10 MG TAB PO SCH (08:40)
[2019-08-03] MEDS: FUROSEMIDE 20 MG TAB PO SCH (08:40)
[2019-08-03] MEDS: PANTOPRAZOLE SOD 40 MG TABEC PO SCH (08:40)
[2019-08-03] MEDS: CARVEDILOL 12.5 MG TAB PO SCH ×2 (08:40→17:00)
[2019-08-03] MEDS ORDERED: LEVOTHYROXINE SODIUM 75 MCG TAB PO SCH (09:00)
--- NOTE | 2019-08-03 10:01 | NUR ---
CALLED AND LEFT MESSAGE FOR DR. SMALL, WITH [facility], REGARDING POSITIVE BLOOD CULTURES FROM ANAEROBIC BOTTLE. AWAITING CALLBACK.
--- NOTE | 2019-08-03 10:51 | NUR ---
RECEIVED CALLBACK FROM DR. SMALL- DR. SMALL INFORMED OF BLOOD CULTURE RESULTS. DR. CHO ALSO INFORMED ON THE TWO IV ANTIOBIOTIC'S THAT ARE SCHEDULED WELL THE PATIENT RECEIVING TAMIFLU. NO NEW ORDERS GIVEN.
--- NOTE | 2019-08-03 15:55 | NUR ---
Nutrition Screen Note RD Recommendation for Physician: -Recommend diabetic diet Plan of Care: RD following, monitoring for tolerance and adequacy Nutrition reason for involvement: MST Primary Diagnose(s): hypoxia, influenza A PMH: diabetes, HTN, UTI, hypothyroid, CRYSTAL, cholecystectomy, appendectomy Ht: 63 in Wt:259 lb BMI: 45.9 kg/m2 IBW:[address] Assessment: (08/03/19) Chart reviewed. Labs and meds reviewed. Pt is a 74 year old female admitted with hypoxia and Influenza A. Pt stated she has been eating about 50% of her meals during admission. Per documentation, pt consumed 100% of meals today and 50-75% yesterday. No wt loss reported and pt mentioned she usually weighs 250 lbs. Pt currently has a wt of 259 lbs in chart. Pt reports some nausea. No chewing/swallowing issues. Will continue to monitor. Current Diet: Cardiac Diet Malnutrition Evaluation (08/03/19) The patient does not meet criteria for a specified degree of malnutrition at this time. Will re-evaluate at follow-up as appropriate. Diet Education Needs Assessment: Diet education indicated Learner(s): Pt Barriers: No barriers identified Cultural/Language Modifications: No cultural/language modifications noted. Readiness: Pt was eager to learn Method: explanation/ discussion, handout Topics: diabetic diet - carbohydrate counting, weight management Understanding/Compliance: Pt verbalized understanding Nutrition Care Level: low Signed: Cici Canales, RD, LD
[2019-08-03] MEDS: ENOXAPARIN SOD INJ 40 MG/0.4 ML SYR SC SCH (17:07)
--- NOTE | 2019-08-03 19:43 | NUR ---
PATIENT IS IN STABLE CONDITION WITH NO S/S OF RESPIRATORY DISTRESS. NO PAIN VOICED. CALL LIGHT IS WITHIN REACH, PATIENT INSTRUCTED TO CALL FOR ASSISTANCE NEEDED. REPORT GIVEN TO ONCOMING NURSE
--- NOTE | 2019-08-03 20:23 | NUR ---
RECEIVED PT IN BED AOX3 .DENIES PAIN RT AC 20 G S/L RESPIRATIONS ARE EVEN AND UNLABORED .CALL LIGHT WITH IN REACH .CONTINUE TO MONITOR
[2019-08-04] VITALS (9 sets, daily range): BP systolic 112–140; BP diastolic 58–76
[2019-08-04] MEDS: ALBUTEROL/IPRATROPIUM 3 ML NEB NEB SCH ×6 (01:07→23:25)
[2019-08-04 05:36] LABS: BASOPHILS % 0.4 % (0.0-1.0); EOSINOPHILS # (AUTO) 0.1 (0.0-0.4); EOSINOPHILS % 1.2 % (0.0-6.0); HEMATOCRIT 36.8 % (34.2-44.1); HEMOGLOBIN 11.7 g/dL (12.0-16.0); LYMPHOCYTES % 41.9 % (18.0-39.1); MEAN CORPUSCULAR HEMOGLOBIN 28.1 pg (28-32); MEAN CORPUSCULAR HGB CONC 31.8 g/dL (31-35); MEAN CORPUSCULAR VOLUME 88.2 fL (81-99); MONOCYTES # (AUTO) 0.6 (0.2-0.8); NEUTROPHILS # (AUTO) 2.1 (2.1-6.9); NEUTROPHILS % 43.1 % (38.7-80.0); PLATELET COUNT 198 x10e3/uL (140-360); RED BLOOD COUNT 4.17 x10e6/uL (3.6-5.1); RED CELL DISTRIBUTION WIDTH 15.2 % (11.7-14.4)
[2019-08-04] MEDS: LEVOTHYROXINE SODIUM 75 MCG TAB PO SCH (05:50)
[2019-08-04 05:56] LABS: ANION GAP 14.7 mmol/L (8-16); BLOOD UREA NITROGEN 11 mg/dL (7-26); BUN/CREATININE RATIO 14 (6-25); CARBON DIOXIDE 23 mmol/L (22-29); CHLORIDE 106 mmol/L (98-107); EST GLOMERULAR FILTRATION RATE > 60 ML/MIN (60-); GLUCOSE 160 mg/dL (74-118); POTASSIUM 3.7 mmol/L (3.5-5.1); SODIUM 140 mmol/L (136-145)
--- NOTE | 2019-08-04 06:02 | NUR ---
PT RESTED DURING THE NIGHT .DENIES PAIN .CALL LIGHT WITH IN REACH .CONTINUE TO MONITOR
--- NOTE | 2019-08-04 06:50 | NUR ---
IM- progress note O/N no events REVIEW OF SYSTEMS: no f/c/s/N/V/D//leg pain/cp/skin rash/vision changes/confusion v/s revd PE tired appearinga Anicteric ns1s2 reduced BS; cough with deep inspiration soft nt nd no e/t skin dry flat affect a&ox3; [place] LABS: Reviewed. MEDICATIONS: Reviewed. ASSESSMENT AND PLAN: This is a 74YoF Influenza A infection Acute bronchitis DM2 HTN Hypothyroidism PLAN Azithromycin + tamiflu Antitussives Restart home meds SCD Dispo: f/u clinically; 08/03 cont current treatments; continue isolation; pt beginning to feel better; 08/04 GPC in blood contaminant? doing better resp gonzalez; d/c planning; Tony Fenton MD, PhD.
--- NOTE | 2019-08-04 07:03 | NUR ---
REPORT GIVEN TO THE ONCOMING NURSE
[2019-08-04] MEDS: INSULIN REGULAR, HUMAN 100 UNIT/1 ML 3ML VIAL SQ SCH ×4 (07:30→21:00)
[2019-08-04] MEDS: FAMOTIDINE 20 MG TAB PO SCH ×2 (08:14→16:14)
[2019-08-04] MEDS: PANTOPRAZOLE SOD 40 MG TABEC PO SCH (08:14)
[2019-08-04] MEDS: EZETIMIBE 10 MG TAB PO SCH (08:14)
[2019-08-04] MEDS: CARVEDILOL 12.5 MG TAB PO SCH ×2 (08:14→16:16)
[2019-08-04] MEDS: IBUPROFEN 200 MG TAB PO PRN (08:14)
[2019-08-04] MEDS: AZITHROMYCIN 500MG/NS 250 ML 250 ML IV SCH (08:14)
[2019-08-04] MEDS: ASPIRIN 81 MG CHEW TAB PO SCH (08:14)
[2019-08-04] MEDS: GABAPENTIN 300 MG CAP PO SCH ×3 (08:14→21:00)
[2019-08-04] MEDS: FUROSEMIDE 20 MG TAB PO SCH (08:14)
[2019-08-04] MEDS: OSELTAMIVIR PHOSPHATE 75 MG CAP PO SCH ×2 (08:14→16:16)
--- NOTE | 2019-08-04 10:30 | Progress Note ---
DATE: 08/03/2019 SUBJECTIVE: The patient is alert and responsive. She still has cough and mild sore throat. She still has body aches. No nausea, vomiting, or diarrhea. No adverse medication reaction reported. OBJECTIVE: VITAL SIGNS: In the previous 24 hours maximum temperature was up to 99.8 degrees Fahrenheit. She is hemodynamically stable. HEENT: She has no gross pallor. There is no obvious icterus. No oropharyngeal lesions. NECK: Supple. CHEST: Symmetric. Breath sounds are coarse in the lung roldan. HEART: Sounds are regular. There is no new murmur. ABDOMEN: Soft. Bowel sounds are present. EXTREMITIES: There is no acute erythema of the extremities. LABORATORY DATA: Her white count is 6.3, hemoglobin 11.3, platelet count 196. Serum creatinine 0.8. A single blood culture drawn on August 01 is reported with gram-positive cocci in clusters. IMPRESSION: She is on treatment for acute influenza A respiratory infection with probable superimposed bacterial infection. She has a single positive blood culture, gram-positive cocci in clusters. Identification is pending. I suggest continue current treatment. Follow up on her cultures. Continue to monitor clinical response to treatment. MD NAT Wiseman/JOSE ROBERTO /[id number]
--- NOTE | 2019-08-04 12:35 | Progress Note ---
DATE: 08/04/2019 SUBJECTIVE: The patient is alert and responsive. I met her sitting upright in bed, eating her breakfast. She is coughing less. The sore throat is resolving. The body aches is resolving. She has headache. OBJECTIVE: VITAL SIGNS: Maximum temperature in the past 24 hours up to 100.2 degrees Fahrenheit. Most recent temperature 98.6. She is hemodynamically stable. HEENT: She has no pallor. There is no icterus. No oropharyngeal lesions. NECK: Supple. CHEST: Symmetric. The lungs sound clear. HEART: Sounds are regular. There is no new murmur. ABDOMEN: Soft. Bowel sounds are present. EXTREMITIES: There is no acute erythema of her lower extremities. LABORATORY DATA: White count is 4.8, hemoglobin 11.7, and platelet count 198. Serum creatinine is 0.8. There is a single blood culture drawn on August 01, growing gram-positive cocci in clusters. IMPRESSION: She is on treatment for acute influenza A respiratory infection, probably superimposed on bacterial infection. I suspect a contaminated blood culture, although if this is Staph aureus on the blood culture from August 01, it should not be considered a contaminant. It should be treated appropriately. I suggest continue current antimicrobials. Follow up on the blood culture. If the isolate a Staph aureus, blood culture should be repeated. The patient should be started on vancomycin. If the isolate is coagulase-negative Staph, no specific treatment is indicated. I will discuss the patient with the primary physician. MD NAT Wiseman/JOSE ROBERTO /[id number]
[2019-08-04] MEDS: ENOXAPARIN SOD INJ 40 MG/0.4 ML SYR SC SCH (16:16)
--- NOTE | 2019-08-04 19:20 | NUR ---
PATIENT IS IN STABLE CONDITION WITH NO S/S OF RESPIRATORY DISTRESS. NO PAIN VOICED. CALL LIGHT IS WITHIN REACH OF PATIENT, PATIENT INSTRUCTED TO CALL FOR ASSISTANCE NEEDED. REPORT GIVEN TO ONCOMING NURSE.
--- NOTE | 2019-08-04 19:36 | NUR ---
RECEIVED PT SITTING AT THE SIDE OF THE BED .NO ACUTE DISTRESS NOTED .FAMILY AT THE BEDSIDE .CALL LIGHT WITH IN REACH .CONTINUE TO MONITOR
[2019-08-04] MEDS: CEFTRIAXONE SOD 1 GRAM/0.9% SOD CHL 50ML BAG IV SCH (22:47)
[2019-08-05] VITALS (7 sets, daily range): BP systolic 114–164; BP diastolic 55–76
[2019-08-05] MEDS: LEVOTHYROXINE SODIUM 75 MCG TAB PO SCH (05:54)
--- NOTE | 2019-08-05 06:29 | NUR ---
IM- progress note O/N no events REVIEW OF SYSTEMS: no f/c/s/N/V/D//leg pain/cp/skin rash/vision changes/confusion v/s revd PE tired appearinga Anicteric ns1s2 reduced BS; cough with deep inspiration soft nt nd no e/t skin dry flat affect a&ox3; [place] LABS: Reviewed. MEDICATIONS: Reviewed. ASSESSMENT AND PLAN: This is a 74YoF Influenza A infection Acute bronchitis DM2 HTN Hypothyroidism PLAN Azithromycin + tamiflu Antitussives Restart home meds SCD Dispo: f/u clinically; 08/03 cont current treatments; continue isolation; pt beginning to feel better; 08/04 GPC in blood contaminant? doing better resp gonzalez; d/c planning; 08/05 Coag neg staph in blood; if cleared by ID, will d/c home. This is infact a CONTAMINANT; cont care; d/c planning; Tony Fenton MD, PhD.
--- NOTE | 2019-08-05 06:33 | NUR ---
PT RESTING .NO ACUTE DISTRESS NOTED .CALL LIGHT WITH IN REACH .CONTINUE TO MONITOR
--- NOTE | 2019-08-05 07:00 | NUR ---
RECEIVED PATIENT AWAKE RESTING IN BED NO S/S OF DISTRESS. BED LOW, WHEELS LOCKED, SIDE RAILS X2. CALL LIGHT IN REACH WILL CONTINUE TO MONITOR PATIENT.
--- NOTE | 2019-08-05 07:04 | NUR ---
report given to the oncoming nurse
[2019-08-05] MEDS: INSULIN REGULAR, HUMAN 100 UNIT/1 ML 3ML VIAL SQ SCH ×4 (07:30→20:38)
[2019-08-05] MEDS: ALBUTEROL/IPRATROPIUM 3 ML NEB NEB SCH ×5 (07:50→23:10)
[2019-08-05] MEDS: FUROSEMIDE 20 MG TAB PO SCH (09:00)
[2019-08-05] MEDS: GABAPENTIN 300 MG CAP PO SCH ×3 (09:06→20:52)
[2019-08-05] MEDS: OSELTAMIVIR PHOSPHATE 75 MG CAP PO SCH ×2 (09:06→16:30)
[2019-08-05] MEDS: ASPIRIN 81 MG CHEW TAB PO SCH (09:06)
[2019-08-05] MEDS: FAMOTIDINE 20 MG TAB PO SCH ×2 (09:06→16:30)
[2019-08-05] MEDS: AZITHROMYCIN 500MG/NS 250 ML 250 ML IV SCH (09:06)
[2019-08-05] MEDS: CARVEDILOL 12.5 MG TAB PO SCH ×2 (09:06→17:23)
[2019-08-05] MEDS: PANTOPRAZOLE SOD 40 MG TABEC PO SCH (09:06)
[2019-08-05] MEDS: IBUPROFEN 200 MG TAB PO PRN ×2 (09:13→21:59)
[2019-08-05] MEDS: EZETIMIBE 10 MG TAB PO SCH (09:14)
--- NOTE | 2019-08-05 11:08 | NUR ---
PATIENT A/O X3, EVEN RESPIRATIONS ON 3LNC. LUNG SOUNDS DIMINISHED TO AUSCULTATION. PATIENT VOIDS IN BSC. RIGHT AC 20 GAUGE IV SL. PRN PAIN MEDICATION AVAILABLE. CALL LIGHT IN REACH WILL CONTINUE TO MONITOR PATIENT.
--- NOTE | 2019-08-05 15:00 | Progress Note ---
DATE: 08/05/2019 SUBJECTIVE: The patient is fairly stable. She is in no acute distress. She is not coughing much now. No dyspnea at rest. No report of vomiting or diarrhea. No adverse medication reaction reported. OBJECTIVE: VITAL SIGNS: In the past 24 hours, she had temperatures up to 98.9 degrees Fahrenheit. She is hemodynamically stable. She is obese. HEENT: She has no gross pallor. No obvious icterus. No oropharyngeal lesions. NECK: Supple. CHEST: Symmetric. Breath sounds are less coarse in the lung roldan. HEART: Sounds are regular without a significant murmur. ABDOMEN: Soft, nontender. Bowel sounds are normal. There is no acute erythema of lower extremities. LABORATORY DATA: Her white count is 4.8 from August 04. Her serum creatinine 0.8. Her blood culture from August 01 one set grew coagulase-negative Staph, only one set was drawn apparently. Urine culture showed no growth. IMPRESSION: She is on treatment for acute influenza A respiratory infection. Bacterial respiratory infection cannot be excluded. All blood culture is contaminated with coagulase-negative Staph. Clinically, she is improving. I suggest complete five days of the current antimicrobials, then discontinue antibiotics and monitor the patient clinically. I have discussed the patient with Dr. Fenton. MD NAT Wiseman/MODL /[id number]
[2019-08-05] MEDS: ENOXAPARIN SOD INJ 40 MG/0.4 ML SYR SC SCH (16:30)
--- NOTE | 2019-08-05 19:05 | NUR ---
received report from day nurse. patient is resting comfortably in bed. bed is in lowest position and call anguiano is within reach. will continue to monitor patient's plan of care.
[2019-08-05] MEDS: CEFTRIAXONE SOD 1 GRAM/0.9% SOD CHL 50ML BAG IV SCH (20:52)
[2019-08-06] VITALS: BP 130/63
[2019-08-06 04:00] VITALS: BP 119/57
[2019-08-06] MEDS: LEVOTHYROXINE SODIUM 75 MCG TAB PO SCH (05:14)
[2019-08-06] MEDS: ALBUTEROL/IPRATROPIUM 3 ML NEB NEB SCH ×2 (07:00→10:45)
--- NOTE | 2019-08-06 07:05 | NUR ---
report given to day nurse. patient is resting comfortably in bed. bed is in lowest position and call anguiano is within reach.
[2019-08-06 07:57] VITALS: BP 133/64
[2019-08-06] MEDS: INSULIN REGULAR, HUMAN 100 UNIT/1 ML 3ML VIAL SQ SCH ×2 (08:20→12:11)
[2019-08-06] MEDS: CARVEDILOL 12.5 MG TAB PO SCH (08:35)
[2019-08-06] MEDS: FUROSEMIDE 20 MG TAB PO SCH (08:36)
[2019-08-06] MEDS: PANTOPRAZOLE SOD 40 MG TABEC PO SCH (08:36)
[2019-08-06] MEDS: OSELTAMIVIR PHOSPHATE 75 MG CAP PO SCH (08:36)
[2019-08-06] MEDS: FAMOTIDINE 20 MG TAB PO SCH (08:36)
[2019-08-06] MEDS: EZETIMIBE 10 MG TAB PO SCH (08:36)
[2019-08-06] MEDS: ASPIRIN 81 MG CHEW TAB PO SCH (08:36)
[2019-08-06] MEDS: GABAPENTIN 300 MG CAP PO SCH (08:36)
[2019-08-06] MEDS: AZITHROMYCIN 500MG/NS 250 ML 250 ML IV SCH (08:37)
[2019-08-06 08:57] VITALS: BP 133/64
[2019-08-06] MEDS ORDERED: Guaifenesin/Dextromethorphan NG (09:29)
[2019-08-06] MEDS ORDERED: TESSALON PERLE100 MG PO (09:29)
[2019-08-06] MEDS ORDERED: COREG12.5 MG PO (09:29)
--- NOTE | 2019-08-06 09:30 | NUR ---
D/C SUmmary Principal Dx: Influenza A infection Acute bronchitis Blood contamination Secondary Dx: DM2 HTN Hypothyroidism PLAN Azithromycin + tamiflu Antitussives Restart home meds SCD Dispo: f/u clinically; 08/03 cont current treatments; continue isolation; pt beginning to feel better; 08/04 GPC in blood contaminant? doing better resp gonzalez; d/c planning; 08/05 Coag neg staph in blood; if cleared by ID, will d/c home. This is infact a CONTAMINANT; cont care; d/c planning; d/c home f/u pcp 1 week stable d/c>35mins Tony Fenton MD, PhD.
[2019-08-06 11:56] VITALS: BP 141/68
[2019-08-06] MEDS: IBUPROFEN 200 MG TAB PO PRN (13:24)
== END 2019-08-06 13:24 | disposition home or self-care (01) | DRG 872 ==
LOC: ER 21:17 → ERHOLD 08-02 00:26 → MED/SURG3 08-02 00:35
PROVIDERS: ADMIT Internal Medicine; ATTEND Internal Medicine
DX: A41.9 Sepsis, unspecified organism (principal); Z68.42 Body mass index [BMI] 45.0-49.9, adult; E11.9 Type 2 diabetes mellitus without complications; I10 Essential (primary) hypertension; J09.X2 Influenza due to identified novel influenza A virus with other respiratory manifestations; J20.8 Acute bronchitis due to other specified organisms; J98.8 Other specified respiratory disorders; K21.9 Gastro-esophageal reflux disease without esophagitis; M54.9 Dorsalgia, unspecified; R09.02 Hypoxemia; E66.01 Morbid (severe) obesity due to excess calories; E03.9 Hypothyroidism, unspecified; Z79.84 Long term (current) use of oral hypoglycemic drugs
CPT/HCPCS: 36415; 71046; 80048; 80053; 81001; 82550; 82553; 82948; 83605; 83880; 84484; 85025; 87040; 87071; 87086; 87205; 87400; 93005; 94640; 99284; J0456; J0696; J1650; J1817; J7040; J7050

== ENCOUNTER 2021-03-19 13:29 | Emergency (ER) | payer MEDICARE ==
[~2021-03-19] VITALS: Ht 160 cm; Wt 113.9 kg
[~2021-03-19 13:29] MED LIST changes: +AMLODIPINE BESY10 MG PO; +COREG12.5 MG PO; +Guaifenesin/Dextromethorphan NG; +LOVASTATIN40 MG; +TESSALON PERLE100 MG PO; +TIZANIDINE HCL4 MG PO
[2021-03-19] MEDS ORDERED: KETOROLAC TROMETHAMINE 30 MG/ML VIAL IM ONE (13:45)
[2021-03-19] MEDS ORDERED: DEXAMETHASONE 4 MG TAB PO NR (14:34)
== END 2021-03-19 14:51 | disposition home or self-care (01) ==
LOC: ER 13:29
DX: M76.61 Achilles tendinitis, right leg (principal); M25.561 Pain in right knee; I10 Essential (primary) hypertension; E11.9 Type 2 diabetes mellitus without complications; Z79.84 Long term (current) use of oral hypoglycemic drugs; K21.9 Gastro-esophageal reflux disease without esophagitis; E78.5 Hyperlipidemia, unspecified; E78.00 Pure hypercholesterolemia, unspecified; G89.29 Other chronic pain; M54.9 Dorsalgia, unspecified; Z79.899 Other long term (current) drug therapy
CPT/HCPCS: 73562; 73590; 73610; 93971; 99283; J1885; J8540

== ENCOUNTER → 2021-04-17 | Outpatient (CLI) | payer MEDICARE, OTHER | LOC: MRI 13:31 | PROVIDERS: ATTEND Specialist | DX: M17.11 Unilateral primary osteoarthritis, right knee (principal); S80.01XA Contusion of right knee, initial encounter ==

== ENCOUNTER → 2021-10-09 | Outpatient (CLI) | payer MEDICARE, OTHER | LOC: RAD 15:59 | PROVIDERS: ATTEND Internal Medicine | DX: M54.2 Cervicalgia (principal); M54.6 Pain in thoracic spine; M79.661 Pain in right lower leg; M79.631 Pain in right forearm; M25.511 Pain in right shoulder | CPT/HCPCS: 70360; 72072 ==

== ENCOUNTER → 2021-12-30 | Outpatient (CLI) | payer MEDICARE, OTHER | LOC: MRI 10:52 | PROVIDERS: ATTEND Internal Medicine | DX: M25.511 Pain in right shoulder (principal); S46.811A Strain of other muscles, fascia and tendons at shoulder and upper arm level, right arm, initial encounter ==

== ENCOUNTER → 2022-10-22 | Outpatient (CLI) | payer MEDICARE | LOC: RAD 11:07 | PROVIDERS: ATTEND Internal Medicine | DX: M54.16 Radiculopathy, lumbar region (principal); M25.552 Pain in left hip; M25.551 Pain in right hip | CPT/HCPCS: 72110; 73522 ==